=== PATIENT | female | born 2000 | race Caucasian/White ===

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

== ENCOUNTER 2023-11-04 14:13 | Emergency (ER) | payer MEDICAID | END 2023-11-04 15:50 | disposition home or self-care (01) | LOC: MW.ED 14:13 | DX: B08.4 Enteroviral vesicular stomatitis with exanthem (principal); Z91.018 Allergy to other foods; Z75.8 Other problems related to medical facilities and other health care | CPT/HCPCS: 99283 ==